=== PATIENT | male | born 2005 | race Caucasian/White ===

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

== ENCOUNTER 2025-06-01 13:38 | Emergency (ER) | payer OTHER, SELFPAY ==
[2025-06-01 13:46] VITALS: BP 124/56; BP 130/78; PULSE 90; PULSE 92; RESP 20; TEMP 36.8; O2SAT 98; O2SAT 99; BMI 22.5
--- NOTE | 2025-06-01 13:47 | ED.GENADULT ---
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 Patient reports he was eating [place] food at a restaurant and he noticed a big shrimp in the rice. He got nervous and had his girlfriend called 911. He denies any concerns or complaints at this time. Last time he had an allergic reaction to shrimp was when he was little boy. He says he does not remember. He did not have any medicine on him he does not have an EpiPen. He denies chest pain, shortness of breath, nausea, vomiting, abdominal pain. Related Data Previous Rx's ?Medication ?Instructions ?Recorded sodium chloride 0.65 % nasal spray 2 spray intranasal Q2H PRN 12/27/23 aerosol congestion #45 mL albuterol sulfate 90 mcg/actuation 2 puff inhalation Q4-6H PRN 01/18/24 aerosol inhaler shortness of breath or wheezing #1 ea diphenhydramine HCl 25 mg capsule 25 mg PO TID PRN allergic reaction 06/01/25 (Benadryl) #20 caps epinephrine 0.3 mg/0.3 mL 0.3 mg (0.3 mL) IM Q4H PRN 06/01/25 injection, auto-injector (EpiPen anaphylaxis #2 ea 2-Rob) Allergies Allergy/AdvReac Type Severity Reaction Status Date / Time shrimp (SHRIMP) Allergy Severe ANAPHYLAXIS Verified 06/01/25 13:48 Review of Systems Review of Systems: Yes all other systems are reviewed and are negative PMFSH Past Medical History Attestation statement: The following information was validated with the patient. Source: old records reviewed and nursing notes reviewed Medical History Seasonal allergies Mild intermittent asthma Family history of colon cancer in father Surgical History No pertinent past surgical history Family History Family History Mother No problems noted. Father Colon cancer Social History Social History Household Members: Family Advance Directives: No Advance Directives Information Provided: Yes Cognitive needs: No Hearing needs: No Vision needs: No Physical Exam ED Exam Exam: Appearance: Alert.? Oriented X3.? No acute distress.? Head: Normocephalic, atraumatic, no step-offs or deformities Eyes: Pupils equal, round and reactive to light.? ENT: Pharynx normal.? Neck: Normal inspection.? Neck supple.? CVS: Normal heart rate and rhythm.? Pulses normal.? Respiratory: No respiratory distress.? Breath sounds normal.? Abdomen: Soft and nontender.? Skin: Skin warm and dry.? Normal skin color.? Normal skin turgor.? Extremities: No lower extremity edema.? No calf ttp. 5/5 strength to bilateral upper and lower extremities Back: No midline tenderness, no C-spine tenderness, full range of motion, no CVA tenderness bilaterally Neuro: Oriented X 3.? No motor deficit.? No sensory deficit. CN 2-12 intact Vital Signs: Vital Signs - 24 hr 06/01/25 13:46 06/01/25 14:00 Temperature 98.2 F 98.2 F Pulse Rate 92 70 Respiratory Rate 20 16 Blood Pressure 124/56 L 121/66 Pulse Oximetry 99 100 Oxygen Delivery Method Room Air Room Air BMI result Body Mass Index 22.5 vss Course Reevaluation(s) Reevaluation #1: Patient without any complaints still. No chest pain, shortness of breath, nausea, vomiting, rash, feeling that his throat is closing. He reports he feels perfectly fine. Educated patient on diagnosis and treatment plan, answered all question, patient verbalizes understanding. At this time patient will be discharged home, advised to return with new or worsening symptoms. Educated on worrisome signs and symptoms and when to return. At this time I feel comfortable discharge home. Time: 14:51 Medications Administered Discontinued Medications Generic Name Dose Route Start Last Admin Trade Name Freq PRN Reason Stop Dose Admin Diphenhydramine HCl 25 mg 06/01/25 13:45 06/01/25 13:54 Diphenhydramine Hcl 25 Mg Capsule PO 06/01/25 13:46 25 mg ONCE ONE Administration Medical Decision Making Medical Decision Making [facility] Narrative: 19-year-old male presents to the emergency department out of precaution after he noticed he had a shrimp in his rice, he has an anaphylactic reaction to shrimp. He did not eat the shrimp however it was near the ice he did eat. Denies any medical complaints at this time. Physical exam benign History and physical exam concerning for precautions teen. Normal physical exam. No signs of anaphylaxis or allergic reaction. No signs of edema or respiratory distress. Plan will give Benadryl and monitor for an hour Differential Diagnosis Differential Diagnoses: The differential diagnosis associated with the presentation includes (History and physical exam concerning for precautions teen. Normal physical exam. No signs of anaphylaxis or allergic reaction. No signs of edema or respiratory distress.) Admission/Observation Consideration of admission/observation: Escalation of care including admission/observation considered Lab Data Labs: No indication Critical Care Time Critical Care Time Critical Care Time: No Discharge Plan Discharge Clinical Impression: History of anaphylaxis Patient Disposition: Home, Self-Care Instructions: Anaphylaxis (ED) Additional Instructions: Take your medications as prescribed. If you were prescribed antibiotics today, it is important that you take your medication to their entirety, do not skip any doses, do not finish them early. Follow-up with your primary care provider this week. Return to the emergency department with new or worsening symptoms. Such as fevers, chills, chest pain, shortness of breath, nausea, vomiting, dizziness, headache, vision changes, lethargy In case of emergency call 911 How to use an EpiPen: ? Place the orange tip against the middle of the outer thigh. ? Swing and push the auto-injector firmly into the thigh until it ?clicks? ? Hold firmly in place for three seconds?count slowly, ?1, 2, 3? An EpiPen has been sent to your pharmacy this should only be used in severe emergency such as inability to breathe trouble speaking, shortness breath or any signs of anaphylaxis as discussed. If he use an EpiPen it is crucial you come in to an emergency department to be evaluated as you can have a rebound effect. Please follow-up with an allergy doctor. Please follow-up with allergy and immunology Prescriptions: New diphenhydramine HCl [Benadryl] 25 mg capsule 25 mg PO TID PRN (Reason: allergic reaction) Qty: 20 0RF epinephrine [EpiPen 2-Rob] 0.3 mg/0.3 mL auto-injector 0.3 mg IM Q4H PRN (Reason: anaphylaxis) Qty: 2 0RF No Action albuterol sulfate 90 mcg/actuation HFA aerosol inhaler 2 puff inhalation Q4-6H PRN (Reason: shortness of breath or wheezing) Qty: 1 0RF sodium chloride 0.65 % aerosol,spray 2 spray intranasal Q2H PRN (Reason: congestion) Qty: 45 1RF Referrals: Physician,None [Primary Care Provider, Medical] Print Language: Thai
[2025-06-01 14:00] VITALS: BP 121/66; PULSE 70; RESP 16; TEMP 36.8; O2SAT 100
--- NOTE | 2025-06-01 14:06 | PC.NURSE ---
Medicated with PO Benadryl. Care ongoing by this RN.
[2025-06-01 14:52] VITALS: BP 119/62; PULSE 72; RESP 15; TEMP 36.8; O2SAT 100
[2025-06-01 15:00] VITALS: BP 119/62; PULSE 72; RESP 15; TEMP 36.8; O2SAT 100
== END 2025-06-01 15:00 | disposition home or self-care (01) ==
PROVIDERS: Emergency Provider Emergency Medicine
DX: T78.1XXA Other adverse food reactions, not elsewhere classified, initial encounter (principal); X58.XXXA Exposure to other specified factors, initial encounter
CPT/HCPCS: 99283

== ENCOUNTER 2025-09-15 13:12 | Emergency (ER) | payer OTHER, SELFPAY ==
--- NOTE | ~2025-09-15 | XR_ITS ---
CLINICAL HISTORY: Cough, r o PNA Chest X-ray, 2 Views COMPARISON: None provided FINDINGS: No consolidation. No pleural effusion. No pneumothorax. No cardiomegaly. No acute fracture. IMPRESSION: No acute findings. This document has been electronically signed by: Andrews Hoyt MD on 09/15/2025 14:16:46
--- NOTE | 2025-09-15 13:14 | ED_ITS ---
HPI - Fever General Chief Complaint: Upper Respiratory Symptoms Stated Complaint: fever, runny nose, ST, not sleeping Time Seen by Provider: 09/15/25 13:19 History of Present Illness ED Provider: Margarita Arvizu NP HPI Narrative: 19-year-old male patient, medical history asthma, presents today with chief complaint of 2 days of subjective fever. Has been waking in the middle of the night feeling very feverish. Has not taken an oral temperature at home. Reports cough occasionally with yellow/green mucus, sore throat with painful swallow, though attributes this to postnasal drip from several coughing episodes, and nasal congestion. No other sick contacts at home. Has taken Ibuprofen, DayQuil at home with only mild relief. No chest pain or pressure. No shortness of breath. No abdominal pain, nausea or vomiting, urinary complaints. Related Data Previous Rx's ?Medication ?Instructions ?Recorded sodium chloride 0.65 % nasal spray 2 spray intranasal Q2H PRN 12/27/23 aerosol congestion #45 mL albuterol sulfate 90 mcg/actuation 2 puff inhalation Q 4-6H PRN 01/18/24 aerosol inhaler shortness of breath or wheez ing #1 ea diphenhydramine HCl 25 mg capsule 25 mg PO TID PRN all ergic reaction 06/01/25 (Benadryl) #20 caps epinephrine 0.3 mg/0.3 mL 0.3 mg (0.3 mL) IM Q4H PRN 0 06/01/25 injection, auto-injector (EpiPen anaphylaxis #2 ea 2-Rob) Allergies Allergy/AdvReac Type Severity Reaction Status Date / Time shrimp (SHRIMP) Allergy Severe ANAPHYLAXIS Verified 09/15/25 13:18 Review of Systems Review of Systems: ROS is otherwise negative unless mentioned in HPI. [facility] Past Medical History Medical History Seasonal allergies Mild intermittent asthma Family history of colon cancer in father Surgical History No pertinent past surgical history Family History Family History Mother No problems noted. Father Colon cancer Social History Social History Household Members: Family Advance Directives: No Advance Directives Information Provided: No Cognitive needs: No Hearing needs: No Vision needs: No Physical Exam Exam: Exam: Nursing notes and vital signs reviewed. Constitutional: Well-appearing, NAD. Alert. Oriented X3. Eyes: EOMI. ENT: Oropharynx pink, moist. Uvula midline. Tonsils 1+ bilaterally without exudate, though they are erythematous. Neck: Normal inspection. Neck supple. No cervical adenopathy. CVS: Normal heart rate and rhythm. Pulses normal. Respiratory: No respiratory distress. Breath sounds normal. Skin: Skin warm and dry. Normal skin color. Extremities: No lower extremity edema. Neuro: Oriented X 3. No motor deficit. Vital Signs: Vital Signs: Last Vital Signs Temp 99.2 F 09/15/25 13:17 Pulse 96 09/15/25 13:17 Resp 16 09/15/25 13:17 BP 145/71 H 09/15/25 13:17 Pulse Ox 97 09/15/25 13:17 O2 Del Method Room Air 09/15/25 13:17 BMI result Body Mass Index 26.4 Course Course Course Narrative: Medications Administered Discontinued Medications Generic Name Dose Route Start Last Admin Trade Name Freq PRN Reason Stop Dose Admin Acetaminophen 650 mg 09/15/25 13:25 09/15/25 13:49 Acetaminophen 325 Mg Tablet PO 09/15/25 13:26 650 mg ONCE ONE Administration Medical Decision Making Medical Decision Making [facility] Narrative: Well-appearing male, NAD. Cough, congestion, myalgias and subjective fevers at home for 2 days. Lungs CTA, normal heart sounds. Does have history of asthma, though no wheezing is heard on exam. Plan: Viral panel, CXR, reassessment. We will administer a dose of Tylenol given low-grade temp 99.2? F. 2:20 PM--viral panel is positive for influenza A. Rapid strep is negative, negative for influenza B, COVID, RSV. X-ray of the chest shows no acute pneumonia. We will proceed with discharge plan. Given dose of Decadron while in the ED to help with coughing episodes, instructions for [id number] NSAID use, symptomatic treatment. Patient agreeable, expressed understanding. Differential Diagnosis Differential Diagnoses: The differential diagnosis associated with the presentation includes Pneumonia, viral illness, strep pharyngitis, bronchitis Admission/Observation Consideration of admission/observation: Escalation of care including admission/observation considered (Not indicated) Lab Data MDM Lab Attestation statement: I reviewed the patient's lab results. (Positive flu a, negative strep.) Labs: Lab Results 09/15/25 Range/Units 13:21 Influenza Type A (PCR) POSITIVE A (Negative) Influenza Type B (PCR) NEGATIVE (Negative) RSV RNA Qual (PCR) NEGATIVE (Negative) SARS-CoV-2 RNA (RT-PCR) NEGATIVE (Negative) S. pyogenes GrpA DILLON Negative (Negative) Independent Interpretation I performed an independent interpretation of an: Plain X-Ray Interpretation: I have reviewed the patient's imaging and agree with the radiologist's findings. Radiology Impression Discussion of test interpretation with radiology: I have reviewed the radiologist's reading. Radiologist Impression: IMPRESSION: No acute findings. Independent Historian None External Record Review External record reviewed: Other (Prior ER visits) Chronic Conditions Patient?s care impacted by: Other (Asthma) Social Determinants Patient?s care significantly limited by Social Determinants of Health including: Problems related to primary support group Discharge Plan Discharge Clinical Impression: Influenza A Patient Disposition: Home, Self-Care Instructions: Influenza (DC), Flu Shot (Vaccine) for Adults (ED), Droplet Precautions (ED) Additional Instructions: As we discussed, your viral panel here is positive for influenza A. Your strep panel is negative. The chest x-ray does not show pneumonia. Because of your asthma history as well as your cough, I provided you a dose of Decadron while in the ED. This is a steroid medication, and we will help for the next several days for your cough and body aches. [id number] recommend that you take Tylenol, ibuprofen for pain control, as well as antihistamines such as Claritin, Zyrtec, or Benadryl, though Benadryl will cause some drowsiness. Please treat yourself symptomatically. Please follow up with your primary care provider within 1 week. With any worsening complaints at any time, return back to the ED for additional assessment. Prescriptions: No Action albuterol sulfate 90 mcg/actuation HFA aerosol inhaler 2 puff inhalation Q4-6H PRN (Reason: shortness of breath or wheezing) Qty: 1 0RF diphenhydramine HCl [Benadryl] 25 mg capsule 25 mg PO TID PRN (Reason: allergic reaction) Qty: 20 0RF epinephrine [EpiPen 2-Rob] 0.3 mg/0.3 mL auto-injector 0.3 mg IM Q4H PRN (Reason: anaphylaxis) Qty: 2 0RF sodium chloride 0.65 % aerosol,spray 2 spray intranasal Q2H PRN (Reason: congestion) Qty: 45 1RF Ref[place]: [facility] [place] Group, [facility] Practice] Stand Alone Forms: Work/School Release Print Language: Moroccan
[2025-09-15 13:17] VITALS: BP 145/71; PULSE 96; RESP 16; TEMP 37.3; O2SAT 97; BMI 26.4
[2025-09-15 13:39] LABS: Strep A Nucleic Acid Negative (Negative)
[2025-09-15 14:12] LABS: Resp Syncy Virus RNA Qual PCR NEGATIVE (Negative); SARS COV2 PCR INHOUSE NEGATIVE (Negative)
[2025-09-15 14:31] VITALS: BP 145/71; PULSE 96; RESP 16; TEMP 37.3; O2SAT 97
== END 2025-09-15 14:31 | disposition home or self-care (01) ==
PROVIDERS: Nurse Practitioner; Emergency Provider Emergency Medicine Emergency Medical Services
DX: J10.1 Influenza due to other identified influenza virus with other respiratory manifestations (principal); R50.9 Fever, unspecified; Z03.818 Encounter for observation for suspected exposure to other biological agents ruled out; J45.909 Unspecified asthma, uncomplicated
CPT/HCPCS: 71046; 87637; 87651; 99283; J8540

== ENCOUNTER → 2025-09-15 13:17 | Outpatient (BNV) | payer OTHER, SELFPAY | PROVIDERS: Emergency Provider Emergency Medicine Emergency Medical Services; Visit Provider Radiology Diagnostic Radiology | DX: R05.9 Cough, unspecified (principal) | CPT/HCPCS: 71046 ==